=== PATIENT | male | born 1940 | race African-American/Black ===

== ENCOUNTER 2022-11-30 18:50 | Emergency (ER) | payer BC ==
[~2022-11-30] VITALS: Ht 185.4 cm; Wt 83.0 kg
[2022-11-30 18:53] VITALS: TEMP 98.2; O2SAT 99
[2022-11-30 19:52] LABS: BASOPHILS % 1.1 % (0.0-2.0); EOSINOPHILS % 2.9 % (0.0-5.0); HEMATOCRIT. 32.6 % (42.0-52.0); HEMOGLOBIN. 10.5 g/dL (14.0-18.0); LYMPHOCYTES % 23.7 % (20.0-50.0); MEAN CORPUSCULAR HEMOGLOBIN 26.4 pg (28.0-32.0); MEAN CORPUSCULAR HGB CONC 32.3 g/dL (31.0-37.0); MEAN CORPUSCULAR VOLUME 81.9 fL (80.0-94.0); MEAN PLATELET VOLUME 9.4 fl (7.4-10.4); MONOCYTES % 11.1 % (2.0-8.0); NEUTROPHILS % 61.2 % (40.0-76.0); PLATELET 243 x1000/uL (130-400); RED BLOOD CELL COUNT 3.98 mill/uL (4.7-6.1); WHITE BLOOD COUNT 7.5 x1000/uL (4.5-11.0)
[2022-11-30 19:58] LABS: CHLORIDE 104 mEq/L (98-107); INDEX HEMOLYSI 1 (1-3); INDEX ICTERIC 1 (1-4); INDEX LIPEMIC 1 (1-3); POTASSIUM 2.9 mEq/L (3.5-5.1); SODIUM 139 mEq/L (136-145)
[2022-11-30 20:09] LABS: ALANINE AMINOTRANSFERASE 40 IU/L (13-61); ALBUMIN 2.8 g/dL (3.4-5.0); ASPARTATE AMINOTRANSFERASE 29 IU/L (15-37); BILIRUBIN TOTAL 0.6 mg/dL (0.1-1.0); CALCIUM 8.1 mg/dL (8.5-10.1); CARBON DIOXIDE 26 mEq/L (21-32); CREATININE 1.3 mg/dL (0.6-1.3); GLUCOSE 114 mg/dL (70-105); NT PRO B-TYPE NATRIURETIC PEP 15712 pg/mL (5-125); PROTEIN TOTAL 6.9 g/dL (6.0-8.3); TROPONIN I HIGH SENSITIVITY 32 ng/L (<78); UREA NITROGEN BLOOD 16 mg/dL (7-21)
[2022-11-30] MEDS ORDERED: FUROSEMIDE 20MG/2ML VIAL IVP ONE (20:45)
[2022-11-30] MEDS ORDERED: FUROSEMIDE 40MG/4ML VIAL IVP NR (20:45)
[2022-11-30 21:00] VITALS: BP 150/70; PULSE 80; RESP 12
== END 2022-11-30 21:20 | disposition home or self-care (01) ==
LOC: ER 18:59
DX: I11.0 Hypertensive heart disease with heart failure (principal); I50.9 Heart failure, unspecified; R60.0 Localized edema
CPT/HCPCS: 80053; 83880; 85025; 84484; 36415; 93971; 71045; 93005; 96374; 99285; J1940; Z7610 ×2

== ENCOUNTER → 2023-04-26 | Outpatient (CLI) | payer BC, MEDICARE | END | disposition home or self-care (01) | LOC: RAD 15:25 | PROVIDERS: ATTEND Internal Medicine Rheumatology | DX: M17.11 Unilateral primary osteoarthritis, right knee (principal) | CPT/HCPCS: 73562 ==